=== PATIENT | male | born 1965 | race Caucasian/White ===

== ENCOUNTER → 2017-03-16 | Outpatient (CLI) | payer BC ==
--- NOTE | ~2017-03-16 | NDGEN ---
PATIENT'S NAME: MIKAEL SALGUERO [facility] AGE: 51 Y [address] ROOM: [place] [id number] LOCATION: [facility] ADMIT DATE: 03/16/2017 [facility] DISCHARGE DATE: FAMILY PHYSICIAN: Sp Naik MD ATTENDING PHYSICIAN: JEOVANY ALVARADO PROCEDURE: ELECTROENCEPHALOGRAM DATE OF PROCEDURE: 03/16/2017 TEST: TECH: CLINICAL DIAGNOSIS: DURATION OF EE minutes. REASON FOR EEG: Chronic headaches and vertigo. CLINICAL HISTORY: The patient is a 51-year-old male who is having chronic headaches and vertigo. EEG is being done to evaluate any epileptic etiology. EEG FINDINGS: The patient is awake for majority of the EEG. During the awake portions of EEG, a 9-10 hertz background was seen in the posterior head regions. It is up to 70-100 microvolts in voltage. Activation procedures included hyperventilation for 3 minutes and photic stimulation between 3-30 hertz, which did not show any abnormalities. CLASSIFICATION: Normal, awake, drowsy, 10/20 scalp electrodes. IMPRESSION: This EEG is within normal limits. No epileptiform discharges or EEG seizures were seen during this recording. MD MISTY JEAN/modl /[id number] dtt: 03/17/17 1201 TRACIE RAM MOHAN R. dtd: 03/17/17 0747
== END | disposition disaster alternative care site (69) ==
LOC: GNEU 11:00
DX: R42 Dizziness and giddiness (principal); R51 Headache